=== PATIENT | male | born 1945 | race Caucasian/White ===

== ENCOUNTER 2020-10-04 12:15 | Outpatient (CLI) | payer MEDICARE, BC ==
[2020-10-04 14:48] LABS: Hemoglobin 13.3 g/dL (13.5-17.5); Mean Corpuscular HGB CONC 31.9 g/dL (32.0-36.0); Mean Corpuscular Hemoglobin 28.2 pg (27.0-33.0); Mean Corpuscular Volume 88.5 fl (81.2-95.1); Platelet Count 172 10x3/uL (150-450); RBC Distribution Width 15.6 % (11.5-14.5); Red Blood Cell (RBC) Count 4.71 10x6/uL (4.32-5.72); White Blood Cell (WBC) Count 6.2 10x3/uL (3.5-10.5)
[2020-10-04 14:53] LABS: PTT 25.5 sec (22.0-33.0); Prothrombin Time 11.1 sec (9.5-12.1)
[2020-10-04 15:19] LABS: Anion Gap 15 mmol/L (10-20); BUN (Urea Nitrogen) 15 mg/dL (8.4-25.7); Calc. Creatinine Clearance 0 mL/min (70-130); Calcium 9.1 mg/dL (7.8-10.44); Carbon Dioxide 26 mmol/L (23-31); Chloride 108 mmol/L (98-107); Glucose 107 mg/dL (83-110); Potassium 3.7 mmol/L (3.5-5.1); Sodium 145 mmol/L (136-145)
== END 2020-10-04 12:16 | disposition home or self-care (01) ==
LOC: CSHLAB 12:15
PROVIDERS: ATTEND Orthopaedic Surgery
DX: Z01.812 Encounter for preprocedural laboratory examination (principal); M17.11 Unilateral primary osteoarthritis, right knee
CPT/HCPCS: 80048; 85027; 85610; 85730; 87081; 93005; 93010

== ENCOUNTER 2020-11-23 10:11 | Outpatient (CLI) | payer MEDICARE, BC | END 2020-11-23 10:12 | disposition home or self-care (01) | LOC: CSHWCC 10:11 | PROVIDERS: ATTEND Nurse Practitioner Family | DX: L97.422 Non-pressure chronic ulcer of left heel and midfoot with fat layer exposed (principal); E78.2 Mixed hyperlipidemia; I10 Essential (primary) hypertension; M06.9 Rheumatoid arthritis, unspecified; M12.9 Arthropathy, unspecified; M86.672 Other chronic osteomyelitis, left ankle and foot; M79.672 Pain in left foot | CPT/HCPCS: 11042; 99213; G0463 ==

== ENCOUNTER 2020-12-14 09:24 | Outpatient (CLI) | payer MEDICARE, BC | END 2020-12-14 09:25 | disposition home or self-care (01) | LOC: CSHWCC 09:24 | PROVIDERS: ATTEND Nurse Practitioner Family | DX: L97.422 Non-pressure chronic ulcer of left heel and midfoot with fat layer exposed (principal); M86.672 Other chronic osteomyelitis, left ankle and foot; M79.672 Pain in left foot; M06.9 Rheumatoid arthritis, unspecified; M12.9 Arthropathy, unspecified; E78.2 Mixed hyperlipidemia; I10 Essential (primary) hypertension | CPT/HCPCS: 11102; 29445; 88305; 99213; G0463 ==

== ENCOUNTER 2021-04-26 13:32 | Outpatient (CLI) | payer MEDICARE, BC | END 2021-04-26 13:33 | disposition home or self-care (01) | LOC: CSHWCC 13:32 | PROVIDERS: ATTEND Nurse Practitioner Family | DX: L97.422 Non-pressure chronic ulcer of left heel and midfoot with fat layer exposed (principal) ==

== ENCOUNTER 2021-05-03 10:47 | Outpatient (CLI) | payer MEDICARE, BC | END 2021-05-03 10:48 | disposition home or self-care (01) | LOC: CSHWCC 10:47 | PROVIDERS: ATTEND Nurse Practitioner Family | DX: L97.422 Non-pressure chronic ulcer of left heel and midfoot with fat layer exposed (principal) ==

== ENCOUNTER 2021-08-09 09:30 | Outpatient (CLI) | payer MEDICARE, BC | END 2021-08-09 09:31 | disposition home or self-care (01) | LOC: CSHWCC 09:30 | PROVIDERS: ATTEND Nurse Practitioner Family | DX: L97.422 Non-pressure chronic ulcer of left heel and midfoot with fat layer exposed (principal) | CPT/HCPCS: 97139; G0463; 99212 ==

== ENCOUNTER 2021-09-06 10:21 | Outpatient (CLI) | payer MEDICARE, BC | END 2021-09-06 10:22 | disposition home or self-care (01) | LOC: CSHWCC 10:21 | PROVIDERS: ATTEND Nurse Practitioner Family | DX: L97.422 Non-pressure chronic ulcer of left heel and midfoot with fat layer exposed (principal) | CPT/HCPCS: 11042 ==

== ENCOUNTER 2021-10-25 08:15 | Outpatient (CLI) | payer MEDICARE, BC | END 2021-10-25 08:16 | disposition home or self-care (01) | LOC: CSHWCC 08:15 | PROVIDERS: ATTEND Nurse Practitioner Family | DX: L97.422 Non-pressure chronic ulcer of left heel and midfoot with fat layer exposed (principal) | CPT/HCPCS: 11042 ==

== ENCOUNTER 2021-12-06 09:55 | Outpatient (CLI) | payer MEDICARE, BC | END 2021-12-06 09:56 | disposition home or self-care (01) | LOC: CSHWCC 09:55 | PROVIDERS: ATTEND Preventive Medicine Undersea and Hyperbaric Medicine | DX: L97.222 Non-pressure chronic ulcer of left calf with fat layer exposed (principal) | CPT/HCPCS: 87070; 87205; 97139; G0463; 87077; 99213 ==

== ENCOUNTER 2022-02-14 08:57 | Outpatient (CLI) | payer MEDICARE, BC | END 2022-02-14 08:58 | disposition home or self-care (01) | LOC: CSHWCC 08:57 | PROVIDERS: ATTEND Nurse Practitioner Family | DX: L97.422 Non-pressure chronic ulcer of left heel and midfoot with fat layer exposed (principal) | CPT/HCPCS: 11042; 97139; G0463; 99212 ==

== ENCOUNTER 2022-02-28 09:53 | Outpatient (CLI) | payer MEDICARE, BC | END 2022-02-28 09:54 | disposition home or self-care (01) | LOC: CSHWCC 09:53 | PROVIDERS: ATTEND Nurse Practitioner Family | DX: L97.422 Non-pressure chronic ulcer of left heel and midfoot with fat layer exposed (principal) | CPT/HCPCS: 11042 ==

== ENCOUNTER 2022-03-28 09:39 | Outpatient (CLI) | payer MEDICARE, BC | END 2022-03-28 09:40 | disposition home or self-care (01) | LOC: CSHWCC 09:39 | PROVIDERS: ATTEND Nurse Practitioner Family | DX: L97.422 Non-pressure chronic ulcer of left heel and midfoot with fat layer exposed (principal) ==

== ENCOUNTER 2022-04-25 10:47 | Outpatient (CLI) | payer MEDICARE, BC | END 2022-04-25 10:48 | disposition home or self-care (01) | LOC: CSHWCC 10:47 | PROVIDERS: ATTEND Nurse Practitioner Family | DX: L97.422 Non-pressure chronic ulcer of left heel and midfoot with fat layer exposed (principal); L97.425 Non-pressure chronic ulcer of left heel and midfoot with muscle involvement without evidence of necrosis | CPT/HCPCS: 11042 ==

== ENCOUNTER 2022-05-23 10:56 | Outpatient (CLI) | payer MEDICARE, BC | END 2022-05-23 10:57 | disposition home or self-care (01) | LOC: CSHWCC 10:56 | PROVIDERS: ATTEND Nurse Practitioner Family | DX: L97.422 Non-pressure chronic ulcer of left heel and midfoot with fat layer exposed (principal); L97.425 Non-pressure chronic ulcer of left heel and midfoot with muscle involvement without evidence of necrosis ==

== ENCOUNTER 2022-06-20 10:05 | Outpatient (CLI) | payer MEDICARE, BC | END 2022-06-20 10:06 | disposition home or self-care (01) | LOC: CSHWCC 10:05 | PROVIDERS: ATTEND Nurse Practitioner Family | DX: L97.422 Non-pressure chronic ulcer of left heel and midfoot with fat layer exposed (principal); L97.425 Non-pressure chronic ulcer of left heel and midfoot with muscle involvement without evidence of necrosis | CPT/HCPCS: 99213; G0463 ==

== ENCOUNTER 2022-09-24 13:20 | Outpatient (CLI) | payer MEDICARE, BC | END 2022-09-24 13:21 | disposition home or self-care (01) | LOC: CSHWCC 13:20 | PROVIDERS: ATTEND Nurse Practitioner Family | DX: L97.422 Non-pressure chronic ulcer of left heel and midfoot with fat layer exposed (principal) | CPT/HCPCS: 11042 ==

== ENCOUNTER 2022-10-22 09:15 | Outpatient (CLI) | payer MEDICARE, BC | END 2022-10-22 09:16 | disposition home or self-care (01) | LOC: CSHWCC 09:15 | PROVIDERS: ATTEND Nurse Practitioner Family | DX: L97.422 Non-pressure chronic ulcer of left heel and midfoot with fat layer exposed (principal) | CPT/HCPCS: 11042 ==

== ENCOUNTER 2022-11-19 09:41 | Outpatient (CLI) | payer MEDICARE, BC | END 2022-11-19 09:42 | disposition home or self-care (01) | LOC: CSHWCC 09:41 | PROVIDERS: ATTEND Nurse Practitioner Family | DX: L97.422 Non-pressure chronic ulcer of left heel and midfoot with fat layer exposed (principal) | CPT/HCPCS: 11042 ==

== ENCOUNTER 2023-02-05 10:29 | Outpatient (CLI) | payer MEDICARE, BC | END 2023-02-05 10:30 | disposition home or self-care (01) | LOC: CSHWCC 10:29 | PROVIDERS: ATTEND Physician Assistant | DX: L89.620 Pressure ulcer of left heel, unstageable (principal) | CPT/HCPCS: 97597 ==

== ENCOUNTER 2023-03-05 11:22 | Outpatient (CLI) | payer MEDICARE, BC | END 2023-03-05 11:23 | disposition home or self-care (01) | LOC: CSHWCC 11:22 | PROVIDERS: ATTEND Physician Assistant | DX: L89.620 Pressure ulcer of left heel, unstageable (principal) | CPT/HCPCS: 97597; G0463; 99212 ==

== ENCOUNTER 2023-04-10 11:20 | Outpatient (CLI) | payer MEDICARE, BC | END 2023-04-10 11:21 | disposition home or self-care (01) | LOC: CSHWCC 11:20 | PROVIDERS: ATTEND Preventive Medicine Undersea and Hyperbaric Medicine | DX: L89.620 Pressure ulcer of left heel, unstageable (principal) | CPT/HCPCS: 11042 ==

== ENCOUNTER 2023-04-24 13:26 | Outpatient (CLI) | payer MEDICARE, BC | END 2023-04-24 13:27 | disposition home or self-care (01) | LOC: CSHWCC 13:26 | PROVIDERS: ATTEND Physician Assistant | DX: L89.620 Pressure ulcer of left heel, unstageable (principal) | CPT/HCPCS: 97597 ==

== ENCOUNTER 2023-05-15 11:00 | Outpatient (CLI) | payer MEDICARE, BC | END 2023-05-15 11:01 | disposition home or self-care (01) | LOC: CSHWCC 11:00 | PROVIDERS: ATTEND Nurse Practitioner Family | DX: L89.620 Pressure ulcer of left heel, unstageable (principal) | CPT/HCPCS: 11042; 87070; 87077; 87205; G0463; 87186; 99212 ==

== ENCOUNTER 2023-05-29 10:59 | Outpatient (CLI) | payer MEDICARE, BC | END 2023-05-29 11:00 | disposition home or self-care (01) | LOC: CSHWCC 10:59 | PROVIDERS: ATTEND Nurse Practitioner Family | DX: L89.620 Pressure ulcer of left heel, unstageable (principal) | CPT/HCPCS: 11042 ==

== ENCOUNTER 2023-08-07 13:30 | Outpatient (CLI) | payer MEDICARE, BC | END 2023-08-07 13:31 | disposition home or self-care (01) | LOC: CSHWCC 13:30 | PROVIDERS: ATTEND Nurse Practitioner Family | DX: L89.623 Pressure ulcer of left heel, stage 3 (principal) | CPT/HCPCS: 11042 ==

== ENCOUNTER 2023-08-21 12:13 | Outpatient (CLI) | payer MEDICARE, BC | END 2023-08-21 12:14 | disposition home or self-care (01) | LOC: CSHWCC 12:13 | PROVIDERS: ATTEND Nurse Practitioner Family | DX: L89.623 Pressure ulcer of left heel, stage 3 (principal) | CPT/HCPCS: 11042 ==

== ENCOUNTER 2023-09-04 13:00 | Outpatient (CLI) | payer MEDICARE, BC | END 2023-09-04 13:01 | disposition home or self-care (01) | LOC: CSHWCC 13:00 | PROVIDERS: ATTEND Nurse Practitioner Family | DX: L89.623 Pressure ulcer of left heel, stage 3 (principal) | CPT/HCPCS: 11042 ==

== ENCOUNTER 2023-09-18 12:45 | Outpatient (CLI) | payer MEDICARE, BC | END 2023-09-18 12:46 | disposition home or self-care (01) | LOC: CSHWCC 12:45 | PROVIDERS: ATTEND Nurse Practitioner Family | DX: L89.623 Pressure ulcer of left heel, stage 3 (principal) | CPT/HCPCS: 11042 ==